=== PATIENT | female | born 1955 ===

== ENCOUNTER 2017-09-14 19:10 | Emergency (ER) | payer OTHER ==
[2017-09-14 19:23] VITALS: BP 148/82; PULSE 81; RESP 16; TEMP 97; O2SAT 100
--- NOTE | 2017-09-14 21:36 | ED PDOC ---
Lower Extremity Pain/Injury Time Seen by Provider: 09/14/17 19:37 Chief Complaint (Nursing): Lower Extremity Problem/Injury Chief Complaint (Provider): Knee Pain History Per: Patient History/Exam Limitations: no limitations Onset/Duration Of Symptoms: Days (10 days) Current Symptoms Are (Timing): Still Present Additional Complaint(s): 62 yo female presents to the ED complaining of atraumatic left anterior knee pain, onset of 2 days ago. Patient reports that she has been taken Motrin at home, but experiences no relief. Past Medical History Reviewed: Historical Data, Nursing Documentation, Vital Signs Vital Signs: Last Vital Signs Temp 97.0 F L 09/14/17 19:20 Pulse 81 09/14/17 19:20 Resp 16 09/14/17 19:20 BP 148/82 09/14/17 19:20 Pulse Ox 100 09/14/17 19:20 - Medical History PMH: HTN - Surgical History Surgical History: Cholecystectomy - Family History Family History: States: Unknown Family Hx - Social History Current smoker - smoking cessation education provided: No Ex-Smoker (has not smoked in the last 12 months): No Alcohol: None Drugs: Denies - Home Medications Home Medications: Ambulatory Orders Medication Instructions Recorded Cyclobenzaprine [Flexeril] 5 mg PO BID PRN #15 tab 04/10/15 traMADol [Ultram] 50 mg PO Q6H PRN #15 tab 09/14/17 - Allergies Allergies/Adverse Reactions: Allergies Allergy/AdvReac Type Severity Reaction Status Date / Time No Known Allergies Allergy Verified 04/09/15 23:45 Review of Systems ROS Statement: Except As Marked, All Systems Reviewed And Found Negative Constitutional: Negative for: Fever Musculoskeletal: Positive for: Leg Pain (anterior knee pain) Physical Exam - Reviewed Nursing Documentation Reviewed: Yes Vital Signs Reviewed: Yes - Physical Exam Appears: Positive for: Well, Non-toxic, No Acute Distress Head Exam: Positive for: ATRAUMATIC Skin: Positive for: Normal Color Eye Exam: Positive for: Normal appearance ENT: Positive for: Normal ENT Inspection Respiratory: Negative for: Accessory Muscle Use, Respiratory Distress Extremity: Positive for: Normal ROM. Negative for: Tenderness, Pedal Edema, Deformity Neurologic/Psych: Positive for: Alert, Oriented. Negative for: Motor/Sensory Deficits - ECG O2 Sat by Pulse Oximetry: 100 (RA) Pulse Ox Interpretation: Normal Medical Decision Making Medical Decision Making: Time: --20:14 Impression: --Left Knee Pain Plan: --Knee X-ray Reassess -- Scribe Attestation: Documented by Natalio Easley acting as a scribe for EARNESTINE Estrada. Provider Attestation: All medical record entries made by the Scribe were at my direction and personally dictated by me. I have reviewed the chart and agree that the record accurately reflects my personal performance of the history, physical exam, medical decision making, and the department course for this patient. I have also personally directed, reviewed, and agree with the discharge instructions and disposition. Disposition - Clinical Impression Clinical Impression: Knee pain - Patient ED Disposition Is Patient to be Admitted: No Counseled Patient/Family Regarding: Diagnosis, Need For Followup, Rx Given - Disposition Referrals: Ace Schrader MD [Medical Doctor] - Disposition: Routine/Home Disposition Time: 21:35 Condition: GOOD Prescriptions: traMADol [Ultram] 50 mg PO Q6H PRN #15 tab PRN Reason: Pain Instructions: Knee Pain (DC) Forms: [facility] (Chinese)
--- NOTE | 2017-09-15 07:48 | RAD ---
HISTORY: pain COMPARISON: No prior FINDINGS: BONES: Normal. No fracture. JOINTS: Normal. No osteoarthritis. SOFT TISSUE: Normal. OTHER FINDINGS: None . IMPRESSION: Normal Bone Xray.
== END 2017-09-14 21:59 | disposition home or self-care (01) ==
LOC: H.ER 19:10
DX: M25.562 Pain in left knee (principal); I10 Essential (primary) hypertension